=== PATIENT | male | born 1950 | race Caucasian/White ===

== ENCOUNTER 2020-06-09 13:52 | Outpatient (RCR) | payer MEDICARE, SELFPAY ==
[2020-06-09] MEDS: COVID-19 VACC, MRNA(PFIZER)/PF 30 MCG/0.3 ML SYRINGE IM (10:41)
[2020-06-30] MEDS: COVID-19 VACC, MRNA(PFIZER)/PF 30 MCG/0.3 ML SYRINGE IM (10:26)
== END 2020-06-09 23:59 ==
LOC: IMMUN 13:52
PROVIDERS: PCP Internal Medicine; Visit Provider Family Medicine
DX: Z23 Encounter for immunization (principal)
CPT/HCPCS: 0001A; 0002A; 91300